=== PATIENT | male | born 1950 | race Caucasian/White ===

== ENCOUNTER 2019-02-22 06:34 | Day surgery (SDC) | payer MEDICARE, OTHER ==
[~2019-02-22] VITALS: Ht 167.6 cm; Wt 78.3 kg
[~2019-02-22 06:34] MED LIST: AMLO5TAB4 PO; GLIP5TAB13 PO; INSULIN; METF-849 PO
[2019-02-22 07:14] VITALS: Ht 167.6 cm; Wt 78.3 kg
[2019-02-22 07:47] VITALS: BP 139/66; PULSE 70; RESP 18
[2019-02-22] MEDS ORDERED: PROPOFOL 20 ML ONE ×2 (08:01→09:28)
== END 2019-02-22 11:10 | disposition home or self-care (01) ==
LOC: GIL 06:34
PROVIDERS: ATTEND Internal Medicine Gastroenterology
DX: R19.4 Change in bowel habit (principal); K64.8 Other hemorrhoids; Z86.010 Personal history of colon polyps; I10 Essential (primary) hypertension; E11.9 Type 2 diabetes mellitus without complications; Z79.84 Long term (current) use of oral hypoglycemic drugs; Z79.4 Long term (current) use of insulin
CPT/HCPCS: 82962; 88305